=== PATIENT | female | born 1930 ===

== ENCOUNTER 2018-10-28 11:26 | Outpatient (CLI) | payer MEDICARE ==
[~2018-10-28] VITALS: Ht 162.6 cm; Wt 57.3 kg
--- NOTE | ~2018-10-28 | TEE ---
PATIENT:MEET BRYANT MEDICAL RECORD: [id number] LOCATION:[facility] AGE OF PATIENT: 87 ADMISSION DATE: 10/28/18 SEX: F REFERRING PHYSICIAN: INTERPRETING PHYSICIAN: ADARSH LOVE MD TRANSESOPHAGEAL ECHOCARDIOGRAM Date: 10/28/18 LEONCIO CHARGE Y INDICATIONS: MR PREMEDICATIONS: PATIENT'S RESPONSE PROCEDURE DOPPLER MEASUREMENTS: LVIT LA PA RA LVOT RVOT Asc. Ao AV Gradient Peak AV Mean AV Area MV Gradient Peak MV Mean MV Area INTERPRETATION: Doppler: 2-D: COLOR FLOW DOPPLER NORMAL SALINE STUDY: MISCELLANOUS: DIAGNOSIS: PLAN: Meter Tester:3 Dr. Ha Critical Care Rn: 1 YAZMIN FERNANDEZ COMMENTS: DATE OF SERVICE: 10/28/2018 Transesophgeal Report PROCEDURE IN DETAIL: After general sedation via anesthesia via TIVA, transesophageal Omniplane probe was placed in the distal esophagus and proximal stomach without difficulty. FINDINGS: LVH present. LV internal dimensions are normal. Wall motion is TRANSESOPHAGEAL ECHOCARDIOGRAM REPORT [id number] MEET BRYANT normal. EF is greater than 55%. The aortic valve is well visualized, it is tricuspid with restriction of leaflet motion. Unable to form angles to check; however, from 2D inspection, this appears to be a moderate, if not severe particularly in view of color flow as seen above the valve. Left atrium appears normal size. Left atrial appendage is visualized without evidence of thrombus. Mitral valve is visualized with probably no more than moderate MR. RV internal dimensions are normal. The right atrium is obviously enlarged with probably severe degree of TR with color-flow imaging. IMPRESSION: Probable at least xidisowd-xo-wlqite by 2D and kvoapkqv-kl-kfuypn TR with right atrial enlargement by color flow imaging. TRANSINT:[id number] Voice Confirmation ID: [id number] DOCUMENT ID: [id number] ADARSH LOVE MD CC: [id number] DICTATION DATE: 10/28/18 1428 CASTING HOUSE LABORER: 10/29/18 1138 DEP CLI 10/28/18 [address] [place] [address]
--- NOTE | ~2018-10-28 | HEMODYNAMI ---
PATIENT:MEET BRYANT MEDICAL RECORD: [id number] : [birth year] LOCATION:[facility] ADMISSION DATE: 10/28/18 Generatedon:10/28/201814:25 Patient name: MEET BRYANT Patient #: [id number] SSN: : 1930 Date of study: Page: Of Hemodynamic Procedure Report Patient Data Patient Demographics Procedure consent was obtained First Name: MEET Gender: Female Last Name: MANNY : 1930 Patient #: [id number] Age: 87 year(s) Race: Unknown Additional ID: [id number] Contact details [address]: [address] [place] [address] State: [place] City: [place] Zip code: [address] Past Medical History Allergies Allergen Reaction Date Comments Reported Codeine 10/28/2018 Admission Admission Data Admission Date: 10/28/2018 Admission Time: 11:26 Procedure Procedure Types Cath Procedure Diagnostic Procedure LEONCIO Procedure Description Procedure Staff Name Function Carl Severino MD Performing Physician Cristine Velez RT Monitor Andrew Cintron RN Nurse Emery Caldera RT Child Care Sitter Kiran Parker RT Child Care Sitter Junior Cannon Armoring Machine Operator Magdaleno Elizabeth CRNA Additional personnel Procedure Medications Medication Administration Route Dosage Oxygen etCO2 Nasal cannula 6 l/min 0.9% NaCl I.V. 100 ml/hr Hemodynamics Rest Pre Cath Intra NCS Post Cath Vital Signs Time Heart Resp SPO2 etCO2 NIBP (mmHg) Rhythm Pain Sedation Rate (ipm) (%) (mmHg) Status Level (bpm) 13:37:14 101 17 97 0 164/87(147) NSR 0 (11) 10(A) , No pain 13:41:32 86 17 98 0 149/83(117) NSR 0 (11) 10(A) , No pain 13:45:48 80 16 98 28.4 149/83(121) NSR 0 (11) 10(A) , No pain 13:50:06 81 16 99 30.6 152/83(114) NSR 0 (11) 10(A) , No pain 13:55:05 82 16 99 9.7 156/84(112) NSR 0 (11) 10(A) , No pain 13:59:19 80 17 99 12.7 146/85(128) NSR 0 (11) 10(A) , No pain 14:03:31 96 16 100 30.6 153/137(141) NSR 0 (11) 10(A) , No pain 14:07:51 97 17 100 29.9 141/81(110) NSR 0 (11) 10(A) , No pain 14:12:05 95 17 95 2.2 148/88(119) NSR 0 (11) 9(A) , No pain 14:16:17 86 16 97 2.2 115/82(107) NSR 0 (11) 9(A) , No pain 14:20:29 71 19 97 0 105/61(81) NSR 0 (11) 9(A) , No pain 14:24:37 70 18 13.4 109/62(87) NSR 0 (11) 9(A) , No pain Medications Time Medication Route Dose Verified Delivered Reason Notes Effective ness by by 13:40:32 Oxygen etCO2 6 Carl Morales Per Nasal l/min St Kavin Cintron RN physician cannula 13:40:41 0.9% NaCl I.V. 100 Carl Andrew Per ml/hr St Kavin Cintron RN physician Procedure Log Time Note 13:30:02 Emery Verenice RT(R) sent for patient. Start room use. 13:33:40 Time tracking: Regular hours (M-F 7:00 - 5:00) 13:33:44 Plan of Care:Hemodynamics will remain stable., Cardiac rhythm will remain stable., Comfort level will be maintained., Respiratory function will remain adequate., Patient/ family verbilizes understanding of procedure., Procedure tolerated without complication., Recovers from procedure without complications.. 13:34:15 Patient received from Pre/Post Procedure Room to CCL 3 Alert and oriented. Tansferred to table in Supine position. 13:34:17 Warm blankets applied, and susie hugger turned on for patient comfort. 13:34:17 Correct patient and procedure confirmed by team. 13:34:18 Signed procedure consent form obtained from patient. 13:34:19 ECG and BP/O2 sat monitors applied to patient. 13:34:20 Full Disclosure recording started 13:36:02 Vital chart was started 13:36:07 Rhythm: sinus rhythm 13:36:35 H&P Date Dictated: 10/21/2018 Within 30 days and on chart., H&P Addendum completed by physician on day of procedure. (MUST COMPLETE FOR ALL OUTPATIENTS). 13:36:37 Pre-procedure instructions explained to patient. 13:36:37 Pre-op teaching completed and patient verbalized understanding. 13:36:40 Family in patients room. 13:36:41 Patient NPO since Midnight. 13:38:19 Patient allergic to Codeine 13:38:21 Is the patient allergic to Iodine/contrast media? No. 13:38:23 Is patient on blood thinner?Yes 13:38:35 ACC The patient was administered the following blood thiners within the last 24 hours: ACCPradaxa 13:38:39 Patient diabetic? No. 13:38:49 Previous problem with sedation/anesthesia? Yes difficult to wake 13:38:51 Snore? No 13:38:53 Sleep apnea? No 13:38:54 Deviated septum? No 13:38:55 Opens mouth fully? Yes 13:38:56 Sticks out tongue? Yes 13:38:57 Airway obstruction? No ? 13:39:11 Dentures? No ? 13:39:17 Patient pain scale 0/10 ?. 13:39:24 IV patent on arrival in left forearm with 0.9% NaCl at [facility]. 13:39:26 Lab results completed and on chart. 13:39:31 Alarms reviewed by RTerence NTerence 13:40:32 Oxygen 6 l/min etCO2 Nasal cannula was administered by Andrew Cintron RN; Per physician; 13:40:41 0.9% NaCl 100 ml/hr I.V. was administered by Andrew Cintron RN; Per physician; 13:41:56 Magdaleno Elizabeth CRNA present and monitoring patient for TIVA. 14:00:19 Junior [place] Manager Ethics present for LEONCIO. 14:06:02 Final Timeout: patient, procedure, and site verified with staff and physician. All members of the team are in agreement. 14:06:06 Physical assessment completed. ASA score P 2 - A patient with mild systemic disease as per Carl Severino MD. 14:06:13 Sedation plan: TIVA Medication:Propofol 14:08:26 LEONCIO started. 14:17:46 LEONCIO completed. 14:17:57 Procedure ended.(Physican Out) 14:18:09 Post procedure rhythm: unchanged. 14:18:13 Post-procedure physical assessment completed. ASA score P 2 - A patient with mild systemic disease as per Carl Severino MD. 14:18:18 Post procedure instruction explained to patient.Patient verbalizes understanding. 14:18:18 Patient needs reinforcement of post procedure teaching. 14:18:24 See physician's report for complete and final results. 14:20:51 Report given to Pre/Post Procedure Room. 14:24:01 Vital chart was stopped 14:24:07 Patient transfered to Pre/Post Procedure Room with Stretcher. 14:24:11 End room use (Document Last) Signature Audit [place] Stage Time Signature Unsigned Intra-Procedure 10/28/2018 Cristine 2:25:18 PM Counts RT(R) Signatures Monitor : Cristine Signature : Counts RT Date : Time : [address] [address]
[2018-10-28] MEDS ORDERED: CARTIA XT240 MG PO (12:01)
[2018-10-28] MEDS ORDERED: LEVOTHYROXINE50 MCG PO (12:01)
[2018-10-28] MEDS ORDERED: AVAPRO150 MG PO (12:02)
[2018-10-28] MEDS ORDERED: PRADAXA150 MG PO (12:02)
[2018-10-28] MEDS ORDERED: PRAVACHOL20 MG PO (12:03)
[2018-10-28 12:34] LABS: BASOPHILS 0.4 % (0-2); EOSINOPHILS 1.5 % (0-7); HEMATOCRIT 39.8 % (36.0-48.0); HEMOGLOBIN 13.7 g/dL (12-16); IMMATURE GRANULOCYTES 0.2 % (0-5); LYMPHOCYTES 30.9 % (15-50); MCHC 34.4 g/dL (31.0-37.0); MEAN PLATELET VOLUME 9.4 fL (7.4-10.4); MONOCYTES 13.5 % (2-11); NEUTROPHILS 53.5 % (40-80); PLATELET COUNT 264 10x3/uL (130-400); RBC 4.42 10x6/uL (4.00-5.40); RDW 13.6 % (11.5-14.5); WBC 5.5 10x3/uL (4.8-10.8)
[2018-10-28 12:37] VITALS: BP 143/103; Ht 162.6 cm; Wt 57.3 kg
[2018-10-28 12:49] LABS: APTT 63.8 SECONDS (22.8-39.4); INR 1.59 (0.85-1.17); PROTIME 18.3 SECONDS (11.6-15.0)
[2018-10-28 12:54] LABS: CALCIUM 9.1 mg/dL (8.5-10.1); CARBON DIOXIDE 24.9 mmol/L (21.0-32.0); CREATININE - SERUM 0.9 mg/dL (0.6-1.3); POTASSIUM - SERUM 3.9 mmol/L (3.5-5.1)
== END 2018-10-28 15:30 ==
LOC: D.CATH 11:26
PROVIDERS: Internal Medicine Cardiovascular Disease
DX: I34.0 Nonrheumatic mitral (valve) insufficiency (principal); I35.0 Nonrheumatic aortic (valve) stenosis; Z01.812 Encounter for preprocedural laboratory examination

== ENCOUNTER → 2020-03-29 09:34 | Outpatient (CLI) | payer MEDICARE, OTHER ==
[2018-10-28 12:37] VITALS: BMI 21.6
[~2020-03-29 09:34] MED LIST: AVAPRO150 MG PO; CARTIA XT240 MG PO; LEVOTHYROXINE50 MCG PO; PRADAXA150 MG PO; PRAVACHOL20 MG PO
== END | disposition home or self-care (01) ==
LOC: D.HCCECHO 09:34
PROVIDERS: ATTEND Internal Medicine Cardiovascular Disease
DX: I35.0 Nonrheumatic aortic (valve) stenosis (principal)